=== PATIENT | male | born 1960 | race Caucasian/White ===

== ENCOUNTER 2016-09-04 10:50 | Inpatient (IN) | payer OTHER ==
[~2016-09-04] VITALS: Ht 165.1 cm; Wt 66.0 kg
[~2016-09-04 10:50] MED LIST: AMLO5TAB96 PO; LORTA5 PO; TRIA50 PO
[2016-09-04 10:54] VITALS: BP 180/96; PULSE 74; RESP 20; TEMP 98.5; O2SAT 96
[2016-09-04 12:49] LABS: AUTOMATED NEUTROPHIL # 8.1 TH/MM3 (1.8-7.7); BASOPHIL % 0.4 % (0.0-2.0); EOSINOPHIL % 0.3 % (0.0-4.0); HEMATOCRIT 42.7 % (39.0-51.0); HEMO FLAGS DIFF FINAL; LYMPH % 20.9 % (9.0-44.0); LYMPHOCYTE # 2.4 TH/MM3 (1.0-4.8); MEAN CELL VOLUME 90.5 FL (80.0-100.0); MEAN CORPUSCULAR HEMOGLOBIN 30.8 PG (27.0-34.0); MONO % 7.9 % (0.0-8.0); NEUT % 70.5 % (16.0-70.0); PLATELET COUNT 250 TH/MM3 (150-450); RED BLOOD COUNT 4.71 MIL/MM3 (4.50-5.90); RED CELL DISTRIBUTION WIDTH 12.8 % (11.6-17.2); WHITE BLOOD COUNT 11.5 TH/MM3 (4.0-11.0)
[2016-09-04 13:04] LABS: APTT (PATIENT) 23.4 SEC (24.3-30.1); INTERNATIONAL NORMALIZED RATIO 0.9 RATIO; PROTHROMBIN TIME - PATIENT 9.7 SEC (9.8-11.6)
[2016-09-04 13:13] LABS: ANION GAP 5 MEQ/L (5-15); AST (GOT) 14 U/L (15-37); BICARBONATE 30.7 MEQ/L (21.0-32.0); BLOOD UREA NITROGEN 16 MG/DL (7-18); CHLORIDE 104 MEQ/L (98-107); GLOMERULAR FILTRATION RATE 97 ML/MIN (>89); MAGNESIUM 2.4 MG/DL (1.5-2.5); POTASSIUM 3.2 MEQ/L (3.5-5.1); SODIUM (NA) 140 MEQ/L (136-145)
[2016-09-04 13:24] LABS: ALKALINE PHOSPHATASE 59 U/L (45-117); ALT (GPT) 34 U/L (12-78); TOTAL BILIRUBIN ADULT 0.3 MG/DL (0.2-1.0)
--- NOTE | 2016-09-04 13:38 | PD ---
HPI Chief Complaint: Neuro Symptoms/ Deficits Time Seen by Provider: 13:30 Travel History International Travel<30 days: No Contact w/Intl Traveler<30days: No Traveled to known affect area: No History of Present Illness HPI 55-year-old male that presents to the ED for evaluation of neurological deficits. per patient he was seen by his doctor today Dr. Szymanski secondary to severe paralysis of his lower legs and his upper arms. Per patient about 2 months ago he had a fall and injury to his back. Patient has been following with his doctor and had MRIs of his back that shows some irritated joint disease as well as some herniated disc in the cervical and lumbar spine. Patient has been following with him and he was supposed to have a follow-up with pain management tomorrow as well as with a neurologist again nerve studies as he cannot really figure out why he was having the symptoms that he is describing. Per patient he has inability to move especially the right hand and also the left arm. Per patient he has difficulty even lifting the right legs. Also affecting the left leg. Per patient some of these changes have been also when he sits. Per patient especially on the lower legs when he sits sometimes he gets what he describes as spasms of his left leg where his leg points up. No history of neurological deficit before. No chest pain. No shortness of breath. No urinary or bowel movement issues. Per patient he was sent here by his doctor to get evaluated for this changes as per patient today the symptoms worsen when he cannot walk anymore. He denies any pain other than back pain. He states that he sensation is intact although he does feel some numbness especially on the right arm. No surgeries to the back. No fevers chills or sweats. PFSH Past Surgical History Oral Surgery: Yes (T& A) Social History Tobacco Use: No Substance Use: No Allergies-Medications (Allergen,Severity, Reaction): Coded Allergies: Dilantin (Unverified Allergy, Unknown, Rash, 08/07/10) Reported Meds & Prescriptions Reported Meds & Active Scripts Active Reported [place] 5/325 (Hydrocodone-Acetaminophen) 325 Mg/5 Mg Tab 1-2 Tab PO Q6HPRN Norvasc (Amlodipine Besylate) 5 Mg Tab 5 Mg PO DAILY Dyrenium (Triamterene) 50 Mg Cap 37.5 PO DAILY UNKNOWN DOSE Review of Systems Except as stated in HPI: all other systems reviewed are Neg Physical Exam Narrative GENERAL: SKIN: Warm and dry. HEAD: Atraumatic. Normocephalic. EYES: Pupils equal and round 4 mm reactive to light and accommodation. No scleral icterus. No injection or drainage. ENT: No nasal bleeding or discharge. Mucous membranes pink and moist. Tongue is midline. No uvula deviation. NECK: Trachea midline. No JVD. CARDIOVASCULAR: Regular rate and rhythm. No murmurs, S3, S4. RESPIRATORY: No accessory muscle use. Clear to auscultation. Breath sounds equal bilaterally. GASTROINTESTINAL: Abdomen soft, non-tender, nondistended. Hepatic and splenic margins not palpable. MUSCULOSKELETAL: Extremities without clubbing, cyanosis, or edema. No obvious deformities. Patient has deficit on the right hand. Patient keeps the hand flexing cannot extended on by himself. Patient also cannot extend the right elbow without assistance. Sensation appears to be intact. Vascular intact. 2 + pulses bilaterally. No lumbar, thoracic, cervical spine tenderness to palpation noted. No deformity noted in this area. Patient has 3 out of 5 strength in the right lower extremity compared to the left which on my exam appears to be 4/5. Patient able to move TOES of the left leg compared to the right which he cannot move them. No foot drop noted. Sensation intact on the lower extremities. 2+ pulses bilaterally. DTRS are 1+ and minimal. NEUROLOGICAL: Awake and alert. No obvious cranial nerve deficits. Motor grossly within normal limits. Five out of 5 muscle strength in the arms and legs. Normal speech. PSYCHIATRIC: Appropriate mood and affect; insight and judgment normal. Data Data Last Documented VS Vital Signs Date Time Temp Pulse Resp B/P Pulse Ox O2 Delivery O2 Flow Rate FiO2 09/04/16 10:54 98.5 74 20 180/96 96 Room Air Orders Electrocardiogram (09/04/16 11:44) Complete Blood Count With Diff (09/04/16 11:44) Comprehensive Metabolic Panel (09/04/16 11:44) Prothrombin Time / Inr (Pt) (09/04/16 11:44) Act Partial Throm Time (Ptt) (09/04/16 11:44) Magnesium (Mg) (09/04/16 11:44) Thyroid Stimulating Hormone (09/04/16 11:44) Iv Access Insert/Monitor (09/04/16 11:44) Mri Brain W/O Contrast (09/04/16 ) Mri C Spine W/O Contrast (09/04/16 ) Lumbar Puncture (09/04/16 ) Vital Signs (Adult) .On admission (09/04/16 16:52) Notify Radiology (09/04/16 16:52) Csf Cell Count + Differential (09/04/16 16:52) Total Protein, Csf (09/04/16 16:52) Glucose, Csf (09/04/16 16:52) Csf Culture And Gram Stain (09/04/16 16:52) Csf B.Burgdorfer Igg&Igm Lymes (09/04/16 16:52) Csf B.Burgdorferi Dna Lymes (09/04/16 16:52) Vdrl Csf (09/04/16 16:52) Labs Laboratory Tests Test 09/04/16 11:45 White Blood Count 11.5 TH/MM3 Red Blood Count 4.71 MIL/MM3 Hemoglobin 14.5 GM/DL Hematocrit 42.7 % Mean Corpuscular Volume 90.5 FL Mean Corpuscular Hemoglobin 30.8 PG Mean Corpuscular Hemoglobin 34.0 % Concent Red Cell Distribution Width 12.8 % Platelet Count 250 TH/MM3 Mean Platelet Volume 8.5 FL Neutrophils (%) (Auto) 70.5 % Lymphocytes (%) (Auto) 20.9 % Monocytes (%) (Auto) 7.9 % Eosinophils (%) (Auto) 0.3 % Basophils (%) (Auto) 0.4 % Neutrophils # (Auto) 8.1 TH/MM3 Lymphocytes # (Auto) 2.4 TH/MM3 Monocytes # (Auto) 0.9 TH/MM3 Eosinophils # (Auto) 0.0 TH/MM3 Basophils # (Auto) 0.0 TH/MM3 CBC Comment DIFF FINAL Differential Comment Prothrombin Time 9.7 SEC Prothromb Time International 0.9 RATIO Ratio Activated Partial 23.4 SEC Thromboplast Time Sodium Level 140 MEQ/L Potassium Level 3.2 MEQ/L Chloride Level 104 MEQ/L Carbon Dioxide Level 30.7 MEQ/L Anion Gap 5 MEQ/L Blood Urea Nitrogen 16 MG/DL Creatinine 0.82 MG/DL Estimat Glomerular Filtration 97 ML/MIN Rate Random Glucose 76 MG/DL Calcium Level 8.4 MG/DL Magnesium Level 2.4 MG/DL Total Bilirubin 0.3 MG/DL Aspartate Amino Transf 14 U/L (AST/SGOT) Alanine Aminotransferase 34 U/L (ALT/SGPT) Alkaline Phosphatase 59 U/L Total Protein 6.4 GM/DL Albumin 3.3 GM/DL Thyroid Stimulating Hormone 0.787 uIU/ML [address] [place] [address] Medical Decision Making Medical Screen Exam Complete: Yes Emergency Medical Condition: Yes Medical Record Reviewed: Yes Interpretation(s) Last Impressions Brain MRI 09/04/16 0000 Signed Impressions: Service Date/Time: Sunday, September 04, 2016 15:21 - CONCLUSION: 1. Periventricular white matter changes in a nonspecific fashion. 2. There is no retracted diffusion to suggest an acute ischemic event. 3. These white matter changes do extend into the posterior fossa and brainstem. Brodie Gilliam MD FACR MRI of cervical spine showed DJD and some changes but no spinal cord injury CBC & BMP Diagram 09/04/16 11:45 coags WNL Differential Diagnosis Neuropathy versus radiculopathy versus brain injury versus weakness versus acute on chronic versus herniated disc Narrative Course 55-year-old male that presents to the ED for evaluation of extremity paralysis per patient. Patient was properly examined and does appear to have some weakness especially to the right side of the body compared to the left but also on the left. This appears to have worsened per patient for the past couple of days. Patient was seen by his primary care doctor and sent here for evaluation. [facility] had MRIs done about 2 weeks ago. I spoke with the patient' s PCP who tells me that the MRIs did not show any sign of severe illness and I was able to pull of the MRIs which only show mild to moderate herniated disks and no sign of stenosis more noted on the lumbar than on the cervical spine. MRI of the brain was done. Patient denies any new injuries. Patient does have obvious deficit again on the right side. Sensation appears to be intact. Unclear as to the reason patient is having the symptoms. I spoke with my attending Dr. Castellano who agrees with plan. MRI of the head as well as the cervical spine will be done to make sure patient does not have any acute disease. Labs were drawn. My attending Dr. Castellano evaluated the patient with me and recommends speaking with neurologist for possible lumbar puncture and admission. Patient was told this and agrees with plan. I performed lumbar puncture. Dr. Castellano spoke with Dr. Valle who agrees to admission and consult to him. [facility] hospitalist was contacted and Dr Gabriel agrees to admission. Diagnosis Primary Impression: Ascending paralysis Admitting Information Admitting Physician Requests: Admit Luis Carlos Sherwood Sep 04, 2016 13:38
--- NOTE | 2016-09-04 16:07 | PD ---
Data Data Last Documented VS Vital Signs Date Time Temp Pulse Resp B/P Pulse Ox O2 Delivery O2 Flow Rate FiO2 09/04/16 10:54 98.5 74 20 180/96 96 Room Air Orders Complete Blood Count With Diff (09/04/16 11:44) Comprehensive Metabolic Panel (09/04/16 11:44) Prothrombin Time / Inr (Pt) (09/04/16 11:44) Act Partial Throm Time (Ptt) (09/04/16 11:44) Magnesium (Mg) (09/04/16 11:44) Thyroid Stimulating Hormone (09/04/16 11:44) Iv Access Insert/Monitor (09/04/16 11:44) Mri Brain W/O Contrast (09/04/16 ) Mri C Spine W/O Contrast (09/04/16 ) Lumbar Puncture (09/04/16 ) Vital Signs (Adult) .On admission (09/04/16 16:52) Notify Radiology (09/04/16 16:52) Csf Cell Count + Differential (09/04/16 16:52) Total Protein, Csf (09/04/16 16:52) Glucose, Csf (09/04/16 16:52) Csf Culture And Gram Stain (09/04/16 16:52) Csf B.Burgdorfer Igg&Igm Lymes (09/04/16 16:52) Csf B.Burgdorferi Dna Lymes (09/04/16 16:52) Vdrl Csf (09/04/16 16:52) Admit Order (Ed Use Only) (09/04/16 17:13) Consult Neurology (09/04/16 ) Labs Laboratory Tests Test 09/04/16 11:45 White Blood Count 11.5 TH/MM3 Red Blood Count 4.71 MIL/MM3 Hemoglobin 14.5 GM/DL Hematocrit 42.7 % Mean Corpuscular Volume 90.5 FL Mean Corpuscular Hemoglobin 30.8 PG Mean Corpuscular Hemoglobin 34.0 % Concent Red Cell Distribution Width 12.8 % Platelet Count 250 TH/MM3 Mean Platelet Volume 8.5 FL Neutrophils (%) (Auto) 70.5 % Lymphocytes (%) (Auto) 20.9 % Monocytes (%) (Auto) 7.9 % Eosinophils (%) (Auto) 0.3 % Basophils (%) (Auto) 0.4 % Neutrophils # (Auto) 8.1 TH/MM3 Lymphocytes # (Auto) 2.4 TH/MM3 Monocytes # (Auto) 0.9 TH/MM3 Eosinophils # (Auto) 0.0 TH/MM3 Basophils # (Auto) 0.0 TH/MM3 CBC Comment DIFF FINAL Differential Comment Prothrombin Time 9.7 SEC Prothromb Time International 0.9 RATIO Ratio Activated Partial 23.4 SEC Thromboplast Time Sodium Level 140 MEQ/L Potassium Level 3.2 MEQ/L Chloride Level 104 MEQ/L Carbon Dioxide Level 30.7 MEQ/L Anion Gap 5 MEQ/L Blood Urea Nitrogen 16 MG/DL Creatinine 0.82 MG/DL Estimat Glomerular Filtration 97 ML/MIN Rate Random Glucose 76 MG/DL Calcium Level 8.4 MG/DL Magnesium Level 2.4 MG/DL Total Bilirubin 0.3 MG/DL Aspartate Amino Transf 14 U/L (AST/SGOT) Alanine Aminotransferase 34 U/L (ALT/SGPT) Alkaline Phosphatase 59 U/L Total Protein 6.4 GM/DL Albumin 3.3 GM/DL Thyroid Stimulating Hormone 0.787 uIU/ML 3rd Gen MDM Supervised Visit with KALEY: Yes Narrative Course I, Dr. Castellano], have reviewed the advance practice practitioner's documentation and am in agreement, met with the patient face to face, made the diagnosis, and the medical decision making was done by me. *My assessment and Findings: Patient is abnormal neurologic exam including bilateral wristdrop, very difficult to elicit DTRs with him. He does seem to be focused on his low back pain but I don't think that any low back lesion would explain his upper extremity symptoms. Patient has had an MRI of his complete spine, will add an MRI of his head and a repeat MRI of his C-spine at this point. The patient has been following with a neurologist up rule and it sounds like they're planning for an EMG however the patient with his acute neurologic findings may benefit from admission to the hospital and this was discussed with patient as he agreeable for admission. The differential diagnosis does include MS unlikely Annel Gehrig's disease intracranial lesions, electro-light abnormality, Guillain- Deleon variant. Diagnosis Primary Impression: Ascending paralysis Admitting Information Admitting Physician Requests: Admit Condition: Stable Denis Castellnao MD Sep 04, 2016 16:07
--- NOTE | 2016-09-04 16:17 | RADRPT ---
EXAM DATE/TIME: 09/04/2016 15:21 [facility] COMPARISON: No previous studies available for comparison. INDICATIONS : Bilateral upper extremity weakness. MEDICAL HISTORY : Hypertension. SURGICAL HISTORY : Inguinal hernia repair. ENCOUNTER: Initial ACUITY: 2 day PAIN SCORE: 0/10 LOCATION: Head TECHNIQUE: Multiplanar, multisequence MRI of the brain was performed without contrast. FINDINGS: Periventricular white matter changes are noted in a nonspecific fashion. There is no re stricted diffusion. There are no extra-axial fluid collections appreciated. Midline structures are intact. Posterior fossa is unremarkable. There is no parenchymal hemorrhage identified. CONCLUSION: 1. Periventricular white matter changes in a nonspecific fashion. 2. There is no retracted diffusion to suggest an acute ischemic event. 3. These white matter changes do extend into the posterior fossa and brainstem. Brodie Gilliam MD FACR on September 04, 2016 at 16:10 Board Certified Radiologist. This report was verified electronically.
--- NOTE | 2016-09-04 16:27 | RADRPT ---
EXAM DATE/TIME: 09/04/2016 15:21 [facility] COMPARISON: No previous studies available for comparison. INDICATIONS : Upper extremity weakness after fall two months ago with inability to move upper ext remities since last night. MEDICAL HISTORY : Hypertension SURGICAL HISTORY : Inguinal hernia repair. ENCOUNTER: Initial ACUITY: 2 day PAIN SCORE: 3/10 LOCATION: Neck TECHNIQUE: Multiplanar, multisequence MRI examination of the cervical spine was performed. FINDINGS: By MRI the signal intensity in the cervical cord is normal. Cerebellar tonsils are in normal anatomic position. C2-C3: The thecal sac has a normal configuration. There is no evidence of disc herniation or spinal canal stenosis. The neural foramina are patent bilaterally. C3-C4: Very minimal uncinate ridging is present without significant spinal stenosis. Neural foramina are adequate. C4-C5: Very mild uncinate ridging is present with moderate right-sided neural foraminal encroachment . C5-C6: Mild uncinate ridging is present with moderate right-sided neural foraminal encroachment. C6-C7: Mild uncinate ridging is present with minimal bilateral neural foraminal encroachment worse o n the right than the left. C7-T1: The thecal sac has a normal configuration. There is no evidence of disc herniation or spinal canal stenosis. The neural foramina are patent bilaterally. CONCLUSION: Degenerative changes in the cervical spine. The majority of which is neural foramina l encroachment. Degenerative changes are more significant on the right than the left. Correlation is suggested. Brodie Gilliam MD FACR on September 04, 2016 at 16:12 Board Certified Radiologist. This report was verified electronically.
[2016-09-04] MEDS ORDERED: ONDANSETRON HCL 4 MG/2 ML VIAL IVP PRN (17:45)
[2016-09-04] MEDS ORDERED: BISACODYL 10 MG SUPP RECTAL PRN (17:45)
[2016-09-04] MEDS ORDERED: LACTULOSE SYRUP 20 GM/30 ML CUP PO PRN (17:45)
[2016-09-04] MEDS ORDERED: SENNOSIDES 8.6 MG TAB PO PRN (17:45)
[2016-09-04] MEDS ORDERED: MAGNESIUM HYDROXIDE SUSP 30 ML CUP PO PRN (17:45)
[2016-09-04] MEDS ORDERED: NALOXONE HCL 0.4 MG/ML AMP IV PRN (17:45)
[2016-09-04] MEDS ORDERED: SODIUM CHLORIDE 0.9% FLUSH 10 ML FLUSH IV FLUSH PRN (17:45)
--- NOTE | 2016-09-04 17:54 | PD.RAD ---
Post Procedure Progress Note Pre Procedure Diagnosis: (1) Ascending paralysis Post Procedure Diagnosis: (1) Ascending paralysis Procedure Date: Sep 04, 2016 Supervising Radiologist: Shady Gilliam Anesthesia: Local Plan of Activity Patient to Unit: Other Patient Condition: Fair Additional Comments: LP completed single puncture at L4 18cc of clear csf removed opening pressure 18-20 See PACS Report for procedural detail/treatment Shady Gilliam MD Sep 04, 2016 17:54
--- NOTE | 2016-09-04 17:59 | RADRPT ---
EXAM DATE/TIME: 09/04/2016 17:28 [facility] COMPARISON: No previous studies available for comparison. INDICATIONS : Patient presents with bilateral upper and lower extremity paralysis in need of lumbar puncture. MEDICAL HISTORY : HTN, Herniated disc cervical and lumbar SURGICAL HISTORY : Right wrist and 5th digit surgery ENCOUNTER: Initial ACUITY: 1 day PAIN SCORE: 0/10 LUMBAR PUNCTURE TIME: 1730 hours FLUORO TIME: 0.6 minutes IMAGE SERIES: 0 ACCESS LEVEL: L3-4 OPENING PRESSURE: 18-20cm of water CLOSING PRESSURE: Not requested. FLUID: 18 cc of clear CSF was collected and sent to the laboratory for analysis. PROCEDURE : 1. Fluoroscopic guided lumbar puncture. 2. Recording of opening pressure. The risks, benefits and alternatives to the procedure were explained and verbal and written consent w as obtained. The site was prepped in sterile fashion. Full sterile technique was used, including ca p, mask, sterile gloves and gown and a large sterile sheet. Hand hygiene and 2% chlorhexidine and/or betadine/alcohol prep was utilized per protocol for cutaneous antisepsis. The skin and subcutaneous tissues were infiltrated with local anesthetic solution. With fluoroscopic guidance the lumbar thecal sac was punctured at the above level described above and the opening pressure was recorded. The above described fluid was removed without difficulty. The patient tolerated the procedure well and there were no complications. CONCLUSION: Uncomplicated fluoroscopically guided lumbar puncture with pressures as above. Shady Gilliam MD on September 04, 2016 at 17:56 Board Certified Radiologist. This report was verified electronically.
[2016-09-04] MEDS ORDERED: POTASSIUM CHLORIDE 25 MEQ EFFERVESCENT TAB PO ONE (18:15)
--- NOTE | 2016-09-04 18:25 | HHI.PR ---
Objective Objective Results - Vital Signs Date Time Temp Pulse Resp B/P Pulse Ox O2 Delivery O2 Flow Rate FiO2 09/04/16 10:54 98.5 74 20 180/96 96 Room Air Result Diagram: 09/04/16 1145 09/04/16 1145 Other Results Laboratory Tests Test 09/04/16 09/04/16 11:45 17:25 White Blood Count 11.5 Red Blood Count 4.71 Hemoglobin 14.5 Hematocrit 42.7 Mean Corpuscular Volume 90.5 Mean Corpuscular Hemoglobin 30.8 Mean Corpuscular Hemoglobin 34.0 Concent Red Cell Distribution Width 12.8 Platelet Count 250 Mean Platelet Volume 8.5 Neutrophils (%) (Auto) 70.5 Lymphocytes (%) (Auto) 20.9 Monocytes (%) (Auto) 7.9 Eosinophils (%) (Auto) 0.3 Basophils (%) (Auto) 0.4 Neutrophils # (Auto) 8.1 Lymphocytes # (Auto) 2.4 Monocytes # (Auto) 0.9 Eosinophils # (Auto) 0.0 Basophils # (Auto) 0.0 CBC Comment DIFF FINAL Differential Comment Prothrombin Time 9.7 Prothromb Time International 0.9 Ratio Activated Partial 23.4 Thromboplast Time Sodium Level 140 Potassium Level 3.2 Chloride Level 104 Carbon Dioxide Level 30.7 Anion Gap 5 Blood Urea Nitrogen 16 Creatinine 0.82 Estimat Glomerular Filtration 97 Rate Random Glucose 76 Calcium Level 8.4 Magnesium Level 2.4 Total Bilirubin 0.3 Aspartate Amino Transf 14 (AST/SGOT) Alanine Aminotransferase 34 (ALT/SGPT) Alkaline Phosphatase 59 Total Protein 6.4 Albumin 3.3 Thyroid Stimulating Hormone 0.787 3rd Gen CSF Glucose 69 CSF Total Protein 68.1 Date/Time Procedure Status Source Growth 09/04/16 17:25 Gram Stain Received Cerebral Spinal Fluid Lumbar Puncture Pending 09/04/16 17:25 CSF Culture Received Cerebral Spinal Fluid Lumbar Puncture Pending Physical Exam Physical Exam PT is seen & examined d/w PT & his just had LP, results [p] Neurology consult d/w Awilda see Orders will f/u Parag Lewis MD Sep 04, 2016 18:25
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
[2016-09-04] MEDS ORDERED: cloNIDine HCL 0.1 MG TAB PO PRN (18:45)
[2016-09-04] MEDS ORDERED: HYDR12.57 PO (18:48)
[2016-09-04] MEDS ORDERED: AMLO5TAB2 PO (18:48)
[2016-09-04] MEDS ORDERED: IBUP800T23 PO (18:48)
[2016-09-04] MEDS ORDERED: TRAM50TA PO (18:48)
[2016-09-04] MEDS ORDERED: GABA300C5 PO (18:48)
[2016-09-04] MEDS: SODIUM CHLOR 0.9% 1000 ML INJ 1,000 ML IV SCH (18:59)
[2016-09-04 19:12] VITALS: BP 135/86; PULSE 59; RESP 18; O2SAT 94
[2016-09-04 19:14] LABS: GROSS BLOOD TUBE #1 0 (0); GROSS BLOOD TUBE #2 0 (0); GROSS BLOOD TUBE #3 0 (0); GROSS BLOOD TUBE #4 0 (0); SUPERNATE COLOR TUBE #1 CLEAR (CLEAR); SUPERNATE COLOR TUBE #2 CLEAR (CLEAR); SUPERNATE COLOR TUBE #3 CLEAR (CLEAR); SUPERNATE COLOR TUBE #4 CLEAR (CLEAR); VOLUME TUBE # 2 3.3 ML; VOLUME TUBE # 3 3.8 ML; VOLUME TUBE # 4 6.5 ML
[2016-09-04 19:15] LABS: CSF LYMPHOCYTES 67 %; CSF MONOCYTES 33 %; CSF NEUTROPHILS 0 %; WBC TUBE #4 2 /MM3 (0-10)
[2016-09-04 20:30] VITALS: BP 142/74; PULSE 62; RESP 18; TEMP 97.2; O2SAT 96
[2016-09-04] MEDS: SODIUM CHLORIDE 0.9% FLUSH 10 ML FLUSH IV FLUSH SCH (20:38)
[2016-09-04] MEDS: GABAPENTIN 300 MG CAP PO SCH (20:38)
[2016-09-04] MEDS: DOCUSATE SODIUM 50 MG/SENNA 8.6 MG TAB PO SCH (20:38)
[2016-09-04 21:10] VITALS: PULSE 66
[2016-09-04 23:41] VITALS: BP 123/64; PULSE 67; RESP 18; TEMP 97.3; O2SAT 96
[2016-09-05 03:42] VITALS: BP 159/85; PULSE 68; RESP 18; TEMP 97; O2SAT 96
[2016-09-05] MEDS: SODIUM CHLOR 0.9% 1000 ML INJ 1,000 ML IV SCH ×3 (03:42→19:50)
[2016-09-05 07:09] VITALS: BP 129/87; PULSE 61; RESP 18; TEMP 97.5; O2SAT 94
[2016-09-05 08:00] LABS: AUTOMATED NEUTROPHIL # 3.9 TH/MM3 (1.8-7.7); BASOPHIL % 0.3 % (0.0-2.0); EOSINOPHIL # 0.1 TH/MM3 (0-0.4); EOSINOPHIL % 0.7 % (0.0-4.0); HEMATOCRIT 40.2 % (39.0-51.0); HEMO FLAGS DIFF FINAL; LYMPH % 42.7 % (9.0-44.0); LYMPHOCYTE # 3.6 TH/MM3 (1.0-4.8); MEAN CELL VOLUME 90.8 FL (80.0-100.0); MEAN CORPUSCULAR HEMOGLOBIN 31.4 PG (27.0-34.0); MEAN CORPUSCULAR HGB CONC 34.6 % (32.0-36.0); MONO % 9.6 % (0.0-8.0); NEUT % 46.7 % (16.0-70.0); PLATELET COUNT 230 TH/MM3 (150-450); RED BLOOD COUNT 4.42 MIL/MM3 (4.50-5.90); RED CELL DISTRIBUTION WIDTH 13.3 % (11.6-17.2); WHITE BLOOD COUNT 8.4 TH/MM3 (4.0-11.0)
[2016-09-05 08:22] LABS: BICARBONATE 29.9 MEQ/L (21.0-32.0); POTASSIUM 3.5 MEQ/L (3.5-5.1)
[2016-09-05] MEDS: amLODIPine BESYLATE 5 MG TAB PO SCH (09:13)
[2016-09-05] MEDS: SODIUM CHLORIDE 0.9% FLUSH 10 ML FLUSH IV FLUSH SCH ×2 (09:13→19:58)
[2016-09-05] MEDS: HYDROCHLOROTHIAZIDE 12.5 MG CAP PO SCH (09:13)
[2016-09-05] MEDS: DOCUSATE SODIUM 50 MG/SENNA 8.6 MG TAB PO SCH ×2 (09:13→19:58)
--- NOTE | 2016-09-05 11:01 | HHI.PR ---
Subjective Remarks pt. seen laying in bed, was able to roll on right side, was able to flex right knee. keeping fists clenched, states " I have to think about it hard to move them" able to lift both arms no cp no sob no fever intact sensation Objective Objective Results - Vital Signs Date Time Temp Pulse Resp B/P Pulse Ox O2 Delivery O2 Flow Rate FiO2 09/05/16 07:09 97.5 61 18 129/87 94 09/05/16 03:42 97.0 68 18 159/85 96 09/04/16 23:41 97.3 67 18 123/64 96 09/04/16 21:10 66 09/04/16 20:30 97.2 62 18 142/74 96 09/04/16 19:37 Room Air 09/04/16 19:12 59 18 135/86 94 Room Air I/O 09/04/16 09/04/16 09/04/16 09/05/16 09/05/16 09/05/16 07:00 15:00 23:00 07:00 15:00 23:00 Intake Total 380 ml 930 ml Output Total 400 ml Balance -20 ml 930 ml Intake Oral 240 ml 240 ml IV Total 140 ml 690 ml Output Urine Total 400 ml # Voids 0 # Bowel Movements 0 0 1 Result Diagram: 09/05/16 0642 09/05/16 0642 Imaging Last Impressions Lumbar Puncture Fluoroscopy 09/04/16 0000 Signed Impressions: Service Date/Time: Sunday, September 04, 2016 17:28 - CONCLUSION: Uncomplicated fluoroscopically guided lumbar puncture with pressures as above. Shady Gilliam MD Brain MRI 09/04/16 0000 Signed Impressions: Service Date/Time: Sunday, September 04, 2016 15:21 - CONCLUSION: 1. Periventricular white matter changes in a nonspecific fashion. 2. There is no retracted diffusion to suggest an acute ischemic event. 3. These white matter changes do extend into the posterior fossa and brainstem. Brodie Gilliam MD FACR Other Results Laboratory Tests Test 09/04/16 09/04/16 09/05/16 11:45 17:25 06:42 White Blood Count 11.5 8.4 Red Blood Count 4.71 4.42 Hemoglobin 14.5 13.9 Hematocrit 42.7 40.2 Mean Corpuscular Volume 90.5 90.8 Mean Corpuscular Hemoglobin 30.8 31.4 Mean Corpuscular Hemoglobin 34.0 34.6 Concent Red Cell Distribution Width 12.8 13.3 Platelet Count 250 230 Mean Platelet Volume 8.5 8.4 Neutrophils (%) (Auto) 70.5 46.7 Lymphocytes (%) (Auto) 20.9 42.7 Monocytes (%) (Auto) 7.9 9.6 Eosinophils (%) (Auto) 0.3 0.7 Basophils (%) (Auto) 0.4 0.3 Neutrophils # (Auto) 8.1 3.9 Lymphocytes # (Auto) 2.4 3.6 Monocytes # (Auto) 0.9 0.8 Eosinophils # (Auto) 0.0 0.1 Basophils # (Auto) 0.0 0.0 CBC Comment DIFF FINAL DIFF FINAL Differential Comment Prothrombin Time 9.7 Prothromb Time International 0.9 Ratio Activated Partial 23.4 Thromboplast Time Sodium Level 140 143 Potassium Level 3.2 3.5 Chloride Level 104 108 Carbon Dioxide Level 30.7 29.9 Anion Gap 5 5 Blood Urea Nitrogen 16 13 Creatinine 0.82 0.93 Estimat Glomerular Filtration 97 84 Rate Random Glucose 76 81 Calcium Level 8.4 7.9 Magnesium Level 2.4 Total Bilirubin 0.3 Aspartate Amino Transf 14 (AST/SGOT) Alanine Aminotransferase 34 (ALT/SGPT) Alkaline Phosphatase 59 Total Protein 6.4 Albumin 3.3 Thyroid Stimulating Hormone 0.787 3rd Gen CSF Volume (Tube 1) 4.0 CSF Supernatant Color (tube 1) CLEAR CSF Gross Blood (Tube 1) 0 CSF Volume (Tube 2) 3.3 CSF Supernatant Color (tube 2) CLEAR CSF Gross Blood (Tube 2) 0 CSF Volume (Tube 3) 3.8 CSF Supernatant Color (tube 3) CLEAR CSF Gross Blood (Tube 3) 0 CSF Volume (Tube 4) 6.5 CSF Supernatant Color (tube 4) CLEAR CSF Gross Blood (Tube 4) 0 CSF WBC (Tube 4) 2 CSF RBC (Tube 4) 9 CSF Neutrophils 0 CSF Lymphocytes 67 CSF Monocytes 33 CSF Glucose 69 CSF Total Protein 68.1 Date/Time Procedure Status Source Growth 09/04/16 17:25 Gram Stain - Final Resulted Cerebral Spinal Fluid Lumbar Puncture 09/04/16 17:25 CSF Culture - Preliminary Resulted Cerebral Spinal Fluid Lumbar Puncture NO GROWTH IN 24 HOURS. ROS General: Other (12 point ROS completed, negative except as noted above, unreliable. ) HEENT: No: Sore Throat, Dysphagia Cardiac: No: Chest Pain, Edema, Palpitations Pulmonary: No: Cough, SOB, Wheezing GI: No: Abdominal Pain, BM, Diarrhea, N/V /MEDICAL OBSERVER: No: Dysuria, Urgency Neuro/MS: Other (low back pain ), No: Lightheaded, Confusion Psych: No: Anxiety, Depression Skin: No: Itching, Rash Physical Exam Physical Exam GENERAL: This is a well-nourished, well-developed patient, in no apparent distress. SKIN: No rashes, ecchymoses or lesions. Cool and dry. HEAD: Atraumatic. Normocephalic. No temporal or scalp tenderness. EYES: Pupils equal round and reactive. Extraocular motions intact. No scleral icterus. No injection or drainage. ENT: Nose without bleeding, purulent drainage or septal hematoma. Throat without erythema, tonsillar hypertrophy or exudate. Uvula midline. Airway patent. NECK: Trachea midline. No JVD or lymphadenopathy. Supple, nontender, no meningeal signs. CARDIOVASCULAR: Regular rate and rhythm without murmurs, gallops, or rubs. RESPIRATORY: Clear to auscultation. Breath sounds equal bilaterally. No wheezes , rales, or rhonchi. GASTROINTESTINAL: Abdomen soft, non-tender, nondistended. No hepato-splenomegaly , or palpable masses. No guarding. MUSCULOSKELETAL: Extremities without clubbing, cyanosis, or edema. No joint tenderness, effusion, or edema noted. No calf tenderness. Negative Homans sign bilaterally. NEUROLOGICAL: Awake, alert oriented 3. Patient is noted with areflexia to patella. Unable to elicit plantar reflex bilaterally. Unable to lift right leg off the bed. Left lower extremity strength is 5 out of 5. Bilateral hand movie machine operator are 2-3 out of 5. Able to lift both arms. Proximal weakness is noted 3 out of 5. He has intact sensation to upper and lower extremities. Urinary Catheter: No Vascular Central Line Catheter: No A/P Diagnosis: (1) Fall from ladder (2) Constipation (3) HTN (hypertension) (4) Ascending paralysis Assessment and Plan 55-year-old male who fell off a ladder in June of this year and has been having difficulty with low back pain and ambulation. He has been dragging right leg. Complaining of intermittent paralysis of both arms. -Continue with neuro checks Neurology has been consulted for evaluation, input appreciation. Work up in progress Follow results of lumbar puncture, in progress Further workup per neurology recommendations -neuro work up in progress, C spine, thoracic and lumbar spine MRI with contrast ordered -Occupational and Physical therapy for evaluation-pending -not much change since yesterday, unreliable neuro exam. Hypertension, initially uncontrolled, now improved continue home medications continue clonidine 0.1 mg by mouth every 6 hrs when necessary for systolic greater than 160 and diastolic greater than 90 Constipation bowel regimen SCDs for DVT prophylaxis continue to f/u work up results, no etiology for patient's symptoms D/W pt and D/W RN D/W Dr. Lewis This patient was seen by myself and Dr. Lewis, this note is written on his behalf Problem Qualifiers (1) Fall from ladder: Qualified Code: W11.XXXS - Fall from ladder, sequela (2) Constipation: Qualified Code: K59.00 - Constipation, unspecified constipation type (3) HTN (hypertension): Qualified Code: I10 - Essential hypertension Awilda Guerrero Sep 05, 2016 11:01
[2016-09-05 11:31] VITALS: BP 129/75; PULSE 70; RESP 18; TEMP 97.8; O2SAT 94
[2016-09-05] MEDS ORDERED: GADODIAMIDE PF 287 MG/ML 5 ML VIAL (for RAD MRI) IV ONE (13:06)
--- NOTE | 2016-09-05 13:31 | MB ---
cc: BRENDA XIONG DATE OF CONSULTATION 09/05/2016 HISTORY A 55-year-old right-handed man with a history of hypertension. Otherwise he has been totally healthy. He fell off a ladder at home in June and at that time he said he had some weakness in the right foot and that seems to have gotten worse where he cannot move his right leg and then about three weeks later he said he could became weak in his hands. He saw a neurologist about a week or two ago, wanted to do EMG and MCV the first week of September. Evidently he had a workup outpatient and some MRIs. He denies any depression. Bowel and bladder have been working fine. He has been walking, however, at home, just dragging his right leg. SOCIAL HISTORY Nonsmoker or drinker. No drugs. Lives with his . He is in the [email or web address], works as an electrical software engineer, works regularly. FAMILY HISTORY Negative for cancer, seizure or stroke. REVIEW OF SYSTEMS He denies any diabetes, hypercholesterolemia, PA, CABG, cardiac arrhythmia, renal, hepatic or pulmonary disease, thyroid disease, lupus, ulcer, cancer, seizure or stroke. He had a little bit of neck pain. MEDICATIONS 1. Amlodipine. 2. Hydrochlorothiazide. 3. Neurontin 300 at bedtime. PHYSICAL EXAMINATION VITAL SIGNS: On exam, afebrile, 61, 18, 129/87. NECK: There are no carotid bruits. HEART: Regular rhythm. I do not detect a murmur. NEUROLOGIC: He has normal bulk and tone throughout. Pupils are equal. Visual barajas are full. Extraocular movements intact without nystagmus. Face is symmetric with normal sensation. Tongue was midline. He holds his arms in against his body and initially beginning cancers body initially when I asked him to hold his arms up, he said that he could not but then when I put his arms in position, he has normal strength in bilateral deltoid, triceps and biceps. His wrist extensors appeared to have near-normal strength. Finger extensors initially were 4-/5 but then later he said he could not wiggle his fingers at all. I can hold his fingers up and extend the position; he can hold on them there but then says he cannot make a fist or move them at all in either hand. The left lower extremity strength is normal throughout. The right lower extremity is 0/5 throughout. DTRs are 2+ and symmetric in the upper and lower extremities bilaterally. The toes are downgoing bilaterally. There is no ankle clonus. Tone was normal throughout. Pinprick he cannot feel on the right leg right up to about 5 cm below the inguinal region but is normal on his penis. On the left leg it is vaguely diminished but appears to be normal or near-normal all the way down, although it is hard to say, below the knee it seems to be patchy. He had no pin level on his abdomen nor on his anterior or posterior chest or low back. Pinprick was diminished up to the shoulders bilaterally and then up to almost his face on the left and his neck on the right. Gait - He can walk and stand but shuffles his right leg. He could stand on his toes on the left but he would not on the right but he could get up out of bed with assist and was able to bear his weight. LABS He had an LP done, showed a protein of 68. Normal less than 45. Glucose was normal. 2 white cells, 9 red cells. Basic metabolic profile was normal as were LFTs, TSH. Albumin is 3.3. CBC is unremarkable. Coags are normal. IMAGING STUDIES He had an MRI of his brain that was read as some white matter changes. MRI of his cervical spine - some DJD. On review of the films there is no acute infarct. MRI of the is essentially normal, minimal white matter changes. No hemorrhages noted. I was not impressed that he had major posterior fossa or brain stem white matter changes. Review of the MRI of the cervical spine - the cord looks fine. IMPRESSION I have to say that his exam looks very unusual, so much so that I thought he might be malingering. There is a slight increase of protein in his CSF. I suppose he could have an unusual case of Guillain-Spotswood, however, his reflexes are totally intact. I could not find a definite anatomical location for his right lower extremity weakness and with the amount of weakness he has in the right leg in bed, there is no way that he could bear weight on it like he does when he walks. Also the fact that he cannot move his fingers would indicate some involvement in his forearms but I think it is unlikely that we are going to find much wrong. I suppose it could consider some plasma exchange in case he had an atypical Guillain-Spotswood type problem. He certainly needs an EMG and MCV which we can go ahead and order here. I am going to have Rehab see him and we will check some additional blood work, check an MRI of his cervical spine as really everything above the neck is working fine. We will do it with contrast, however, and an MRI of his thoracic and lumbar spine. I will be following with you in the hospital. MD EDMUND Hutson/ZENON /10:51 AM /1:11 PM
--- NOTE | 2016-09-05 14:12 | RADRPT ---
EXAM DATE/TIME: 09/05/2016 12:21 [facility] COMPARISON: No previous studies available for comparison. INDICATIONS : Myelopathy. Fall two months ago with increasing weakness. MEDICAL HISTORY : Hypertension. SURGICAL HISTORY : Hernia repair and hand surgery. ENCOUNTER: Subsequent ACUITY: 2 months PAIN SCORE: 0/10 LOCATION: Back. TECHNIQUE: Multiplanar multisequence MRI of the lumbar spine was performed without contrast. FINDINGS: The most caudal appearing lumbar vertebra is numbered as L5. VERTEBRAE: Homogeneous signal. Normal alignment. CONUS: Normal level and configuration. T12-L1: The thecal sac has a normal diameter. No evidence of disc bulge or protrusion. The neural foramina are patent bilaterally. L1-L2: The thecal sac has a normal diameter. No evidence of disc bulge or protrusion. The neural foramina are patent bilaterally. L2-L3: The thecal sac has a normal diameter. No evidence of disc bulge or protrusion. The neural foramina are patent bilaterally. L3-L4: The thecal sac has a normal diameter. No evidence of disc bulge or protrusion. The neural foramina are patent bilaterally. L4-L5: Mild degenerative disc disease with mild central annular bulging. There is no significant epidural ma ss effect or significant disc herniation. L5-S1: The thecal sac has a normal diameter. No evidence of disc bulge or protrusion. The neural foramina are patent bilaterally. CONCLUSION: 1. Mild degenerative disc disease with posterior annular bulging at L4-5. 2. No evidence of significant disc herniation. 3. No evidence of acute bony abnormality, spinal stenosis or foraminal encroachment. Joey Simeon MD on September 05, 2016 at 14:08 Board Certified Radiologist. This report was verified electronically.
--- NOTE | 2016-09-05 14:16 | RADRPT ---
EXAM DATE/TIME: 09/05/2016 12:21 [facility] COMPARISON: No previous studies available for comparison. INDICATIONS : Myelopathy. Fall two months ago with increasing extremity weakness. CONTRAST: 13 cc Omniscan (gadodiamide) IV MEDICAL HISTORY : Hypertension. SURGICAL HISTORY : Hernia repair and right hand surgery. ENCOUNTER: Subsequent ACUITY: 2 months PAIN SCORE: 0/10 LOCATION: Back. TECHNIQUE: Multiplanar, multisequence MRI examination of the cervical spine was performed. FINDINGS: VERTEBRAE: Normal vertebral body height. Homogeneous marrow signal. ALIGNMENT: No evidence of subluxation. CORD: Normal configuration and signal. POST FOSSA: The cerebellar tonsils are normal in position. POST-CONTRAST: No abnormal areas of enhancement are seen. Mild degenerative changes with disc space narrowing and minimal spondylosis is noted. C2-C3: The thecal sac has a normal configuration. There is no evidence of disc herniation or spina l canal stenosis. The neural foramina are patent bilaterally. C3-C4: The thecal sac has a normal configuration. There is no evidence of disc herniation or spinal canal stenosis. The neural foramina are patent bilaterally. C4-C5: The thecal sac has a normal configuration. There is no evidence of disc herniation or spinal canal stenosis. The neural foramina are patent bilaterally. C5-C6: The thecal sac has a normal configuration. There is no evidence of disc herniation or spinal canal stenosis. The neural foramina are patent bilaterally. C6-C7: The thecal sac has a normal configuration. There is no evidence of disc herniation or spinal canal stenosis. The neural foramina are patent bilaterally. C7-T1: The thecal sac has a normal configuration. There is no evidence of disc herniation or spinal canal stenosis. The neural foramina are patent bilaterally. CONCLUSION: Mild degenerative disease. No evidence of disc herniation, acute bony abnormality, spinal cord abnormality or enhancing lesions. Joey Simeon MD on September 05, 2016 at 14:10 Board Certified Radiologist. This report was verified electronically.
--- NOTE | 2016-09-05 14:19 | RADRPT ---
EXAM DATE/TIME: 09/05/2016 12:21 [facility] COMPARISON: No previous studies available for comparison. INDICATIONS : Myelopathy. Fell two months ago with increasing extremity weakness. CONTRAST: 13 cc Omniscan (gadodiamide) IV MEDICAL HISTORY : Hypertension. SURGICAL HISTORY : Hernia repair and right hand surgery. ENCOUNTER: Subsequent ACUITY: 2 months PAIN SCORE: 0/10 LOCATION: Back. TECHNIQUE: Multiplanar multisequence MRI of the thoracic spine was performed. FINDINGS: VERTEBRA: Normal vertebral body height. Homogeneous marrow signal. ALIGNMENT: Normal. CORD: Normal position and configuration. POST CONTRAST: No abnormal areas of contrast enhancement seen. T1-T2: Normal. T2-T3: The thecal sac has a normal diameter. No evidence of disc bulge or protrusion. T3-T4: The thecal sac has a normal diameter. No evidence of disc bulge or protrusion. T4-T5: The thecal sac has a normal diameter. No evidence of disc bulge or protrusion. T5-T6: The thecal sac has a normal diameter. No evidence of disc bulge or protrusion. T6-T7: The thecal sac has a normal diameter. A small left paracentral disc protrusion with mild epidural eff acement and abutment of the spinal cord is noted. T7-T8: The thecal sac has a normal diameter. No evidence of disc bulge or protrusion. T8-T9: The thecal sac has a normal diameter. No evidence of disc bulge or protrusion. T9-T10: The thecal sac has a normal diameter. No evidence of disc bulge or protrusion. T10-T11: The thecal sac has a normal diameter. No evidence of disc bulge or protrusion. T11-T12: The thecal sac has a normal diameter. No evidence of disc bulge or protrusion. T12-L1: The thecal sac has a normal diameter. No evidence of disc bulge or protrusion. CONCLUSION: Small left paracentral disc protrusion at T6-7. No other significant abnormality. Joey Simeon MD on September 05, 2016 at 14:13 Board Certified Radiologist. This report was verified electronically.
[2016-09-05] MEDS: CYCLOBENZAPRINE HCL 10 MG TAB PO PRN (15:00)
[2016-09-05 15:42] VITALS: BP 131/74; PULSE 69; RESP 18; TEMP 97.7; O2SAT 93
[2016-09-05 19:55] VITALS: PULSE 58
[2016-09-05] MEDS: ACETAMINOPHEN 325 MG TAB PO PRN (19:57)
[2016-09-05] MEDS: GABAPENTIN 300 MG CAP PO SCH (19:58)
[2016-09-05 20:15] VITALS: BP 127/78; PULSE 70; RESP 17; TEMP 96.4; O2SAT 96
[2016-09-05 20:48] LABS: ALT (GPT) 30 U/L (12-78); AST (GOT) 11 U/L (15-37)
[2016-09-05 21:14] LABS: FREE T4 0.94 NG/DL (0.76-1.46)
[2016-09-05 21:46] LABS: CREATINE KINASE 30 U/L (39-308)
[2016-09-05 22:37] LABS: RHEUMATOID FACTOR TRIGGER LESS THAN 10.0 IU/ML (0.0-14.9)
[2016-09-06 00:20] VITALS: BP 113/72; PULSE 58; RESP 17; TEMP 98.4; O2SAT 96
[2016-09-06 01:43] LABS: BLOOD, URINE NEG (NEG); COMMENT (UR) CULT NOT INDICATED; CULTURE IF INDICATED CULT NOT INDICATED; GLUCOSE,URINE NEG (NEG); KETONE, URINE NEG (NEG); MUCUS URINE FEW /lpf (OCC); NITRITE,URINE NEG (NEG); URINE COLOR YELLOW (YELLW/STRAW)
[2016-09-06 04:20] VITALS: BP 140/85; PULSE 60; RESP 17; TEMP 97.2; O2SAT 96
[2016-09-06] MEDS: ACETAMINOPHEN 325 MG TAB PO PRN ×2 (04:45→11:29)
[2016-09-06] MEDS: CYCLOBENZAPRINE HCL 10 MG TAB PO PRN (04:45)
[2016-09-06 08:00] VITALS: BP 133/81; PULSE 61; RESP 20; TEMP 97.5; O2SAT 95
[2016-09-06] MEDS: SODIUM CHLORIDE 0.9% FLUSH 10 ML FLUSH IV FLUSH SCH (09:00)
[2016-09-06] MEDS: SODIUM CHLOR 0.9% 1000 ML INJ 1,000 ML IV SCH (10:30)
[2016-09-06] MEDS: amLODIPine BESYLATE 5 MG TAB PO SCH (10:52)
[2016-09-06] MEDS: DOCUSATE SODIUM 50 MG/SENNA 8.6 MG TAB PO SCH (10:52)
[2016-09-06] MEDS: HYDROCHLOROTHIAZIDE 12.5 MG CAP PO SCH (10:52)
[2016-09-06 11:05] LABS: HSV 1,PCR Negative (Negative)
--- NOTE | 2016-09-06 11:18 | HHI.PR ---
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 asking if we can't do it, can he be transferred to [facility] Objective Objective Results - Vital Signs Date Time Temp Pulse Resp B/P Pulse Ox O2 Delivery O2 Flow Rate FiO2 09/06/16 08:00 97.5 61 20 133/81 95 09/06/16 04:20 97.2 60 17 140/85 96 09/06/16 00:20 98.4 58 17 113/72 96 09/05/16 20:15 96.4 70 17 127/78 96 09/05/16 19:55 58 09/05/16 15:42 97.7 69 18 131/74 93 09/05/16 11:31 97.8 70 18 129/75 94 I/O 09/05/16 09/05/16 09/05/16 09/06/16 09/06/16 09/06/16 07:00 15:00 23:00 07:00 15:00 23:00 Intake Total 930 ml 960 ml 240 ml 240 ml Output Total 1675 ml 600 ml Balance 930 ml -715 ml 240 ml -360 ml Intake Oral 240 ml 960 ml 240 ml 240 ml IV Total 690 ml Output Urine Total 1675 ml 600 ml # Voids 0 3 0 # Bowel Movements 0 2 0 0 Result Diagram: 09/05/16 0642 09/05/16 0642 Imaging Last Impressions Lumbar Puncture Fluoroscopy 09/04/16 0000 Signed Impressions: Service Date/Time: Sunday, September 04, 2016 17:28 - CONCLUSION: Uncomplicated fluoroscopically guided lumbar puncture with pressures as above. Shady Gilliam MD Brain MRI 09/04/16 0000 Signed Impressions: Service Date/Time: Sunday, September 04, 2016 15:21 - CONCLUSION: 1. Periventricular white matter changes in a nonspecific fashion. 2. There is no retracted diffusion to suggest an acute ischemic event. 3. These white matter changes do extend into the posterior fossa and brainstem. Brodie Gilliam MD FACR Other Results Laboratory Tests Test 09/05/16 09/06/16 20:00 01:20 Erythrocyte Sedimentation Rate 4 Aspartate Amino Transf 11 (AST/SGOT) Alanine Aminotransferase 30 (ALT/SGPT) Total Creatine Kinase 30 C-Reactive Protein LESS THAN 0.29 Total Protein 6.0 Vitamin B12 Level 366 Folate 7.8 Free Thyroxine 0.94 Rheumatoid Factor Screen NEGATIVE Rheumatoid Factor Titer Urine Color YELLOW Urine Turbidity HAZY Urine pH 7.0 Urine Specific [place] 1.012 Urine Protein NEG Urine Glucose (UA) NEG Urine Ketones NEG Urine Occult Blood NEG Urine Nitrite NEG Urine Bilirubin NEG Urine Urobilinogen LESS THAN 2.0 Urine Leukocyte Esterase NEG Urine RBC LESS THAN 1 Urine Amorphous Sediment RARE Urine Mucus FEW Microscopic Urinalysis Comment CULT NOT INDICATED Date/Time Procedure Status Source Growth 09/04/16 17:25 Gram Stain - Final Resulted Cerebral Spinal Fluid Lumbar Puncture 09/04/16 17:25 CSF Culture - Preliminary Resulted Cerebral Spinal Fluid Lumbar Puncture NO GROWTH IN 48 HOURS. ROS General: Weakness Neuro/MS: Other (headache ) Physical Exam Physical Exam GENERAL: This is a well-nourished, well-developed patient, in no apparent distress. SKIN: No rashes, ecchymoses or lesions. Cool and dry. HEAD: Atraumatic. Normocephalic. No temporal or scalp tenderness. EYES: Pupils equal round and reactive. Extraocular motions intact. No scleral icterus. No injection or drainage. ENT: Nose without bleeding, purulent drainage or septal hematoma. Throat without erythema, tonsillar hypertrophy or exudate. Uvula midline. Airway patent. NECK: Trachea midline. No JVD or lymphadenopathy. Supple, nontender, no meningeal signs. CARDIOVASCULAR: Regular rate and rhythm without murmurs, gallops, or rubs. RESPIRATORY: Clear to auscultation. Breath sounds equal bilaterally. No wheezes , rales, or rhonchi. GASTROINTESTINAL: Abdomen soft, non-tender, nondistended. No hepato-splenomegaly , or palpable masses. No guarding. MUSCULOSKELETAL: Extremities without clubbing, cyanosis, or edema. No joint tenderness, effusion, or edema noted. No calf tenderness. Negative Homans sign bilaterally. NEUROLOGICAL: Awake, alert oriented 3. Patient is noted with areflexia to patella. Unable to elicit plantar reflex bilaterally. Unable to lift right leg off the bed. Left lower extremity strength is 5 out of 5. Bilateral hand marketing project manager are 2-3 out of 5. Able to lift both arms. Proximal weakness is noted 3 out of 5. He has intact sensation to upper and lower extremities. Urinary Catheter: No Vascular Central Line Catheter: No A/P Diagnosis: (1) Fall from ladder (2) Constipation (3) HTN (hypertension) (4) Ascending paralysis Assessment and Plan 55-year-old male who fell off a ladder in June of this year and has been having difficulty with low back pain and ambulation. He has been dragging right leg. Complaining of intermittent paralysis of both arms. -Continue with neuro checks Neurology has been consulted for evaluation, input appreciation. Work up in progress Follow results of lumbar puncture, in progress -C spine, thoracic and lumbar spine MRI with contrast -results noted -Occupational and Physical therapy working with pt. Recommend OP rehab -Rehab consulted, EMG done, f/u results -continue to follow results, unclear as to cause for symptoms. Hypertension, initially uncontrolled, now improved continue home medications continue clonidine 0.1 mg by mouth every 6 hrs when necessary for systolic greater than 160 and diastolic greater than 90 Constipation bowel regimen Headache -Tylenol PRN SCDs for DVT prophylaxis continue to f/u work up results, no etiology for patient's symptoms D/W pt and D/W RN D/W Dr. Lewis This patient was seen by myself and Dr. Lewis, this note is written on his behalf Problem Qualifiers (1) Fall from ladder: Qualified Code: W11.XXXS - Fall from ladder, sequela (2) Constipation: Qualified Code: K59.00 - Constipation, unspecified constipation type (3) HTN (hypertension): Qualified Code: I10 - Essential hypertension Awilda Guerrero Sep 06, 2016 11:18
[2016-09-06 12:00] VITALS: BP 138/86; PULSE 79; RESP 18; TEMP 98.4; O2SAT 96
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
[2016-09-06 13:31] LABS: ANA SCREEN NEG (NEG)
[2016-09-06 14:49] LABS: RAPID PLASMA REAGIN SCREEN NON-REACTIVE (NON-REACTVE)
[2016-09-06 16:00] VITALS: BP 144/91; PULSE 87; RESP 20; TEMP 97.9; O2SAT 97
[2016-09-06 16:07] LABS: OLIGOCLONAL BANDING CSF 0 bands (()); OLIGOCLONAL BANDING INTERPRET 0 bands (<4); OLIGOCLONAL BANDING SERUM 0 bands (())
[2016-09-06 16:07] LABS: LYME IGG IMMUNOBLOT CSF None Detected bands (None Detected); LYME IGM IMMUNOBLOT CSF None Detected bands (None Detected)
--- NOTE | 2016-09-06 17:19 | HHI.PR ---
Subjective Remarks better Objective Vital Signs Date Time Temp Pulse Resp B/P Pulse Ox O2 Delivery O2 Flow Rate FiO2 09/06/16 12:00 98.4 79 18 138/86 96 09/06/16 08:00 97.5 61 20 133/81 95 09/06/16 04:20 97.2 60 17 140/85 96 09/06/16 00:20 98.4 58 17 113/72 96 09/05/16 20:15 96.4 70 17 127/78 96 09/05/16 19:55 58 I/O 09/05/16 09/05/16 09/05/16 09/06/16 09/06/16 09/06/16 07:00 15:00 23:00 07:00 15:00 23:00 Intake Total 930 ml 960 ml 240 ml 240 ml Output Total 1675 ml 600 ml Balance 930 ml -715 ml 240 ml -360 ml Intake Oral 240 ml 960 ml 240 ml 240 ml IV Total 690 ml Output Urine Total 1675 ml 600 ml # Voids 0 3 0 # Bowel Movements 0 2 0 0 Result Diagram: 09/05/16 0642 09/05/16 0642 Objective Remarks now nl gait stands on toes walks well bilat ue nl and auto parker and finger ext all nl now nad Assessment and Plan Assessment and Plan imp mri brain c t and ls spine neg labs neg emg nl he tells me he was on the toilet and shifted his low back and his hands started working suddenly all normal again he is back to nl neurowise now and ok by me to dc he wants to take his earl up to [place] or [facility] and i told him that was a good idea. Vamsi Olson MD Sep 06, 2016 17:19
--- NOTE | 2016-09-06 17:29 | HHI.DCPOC ---
Discharge Care Plan Diagnosis: (1) Ascending paralysis (2) Fall from ladder (3) Constipation (4) HTN (hypertension) Your Health Problems Are: Anxiety Difficulty with ADL Goals to Promote Your Health * To prevent worsening of your condition and complications * To maintain your health at the optimal level Directions to Meet Your Goals Take your medications as prescribed Follow your dietary instruction Follow activity as directed Keep your appointments as scheduled Take your immunizations and boosters as scheduled If your symptoms worsen call your PCP, if no PCP go to Urgent Care Center or Emergency Room Smoking is Dangerous to Your Health. Avoid second hand smoke Call the 24-hour hour crisis hotline for domestic abuse at Awilda GuerreroP Sep 06, 2016 17:29
[2016-09-07 01:18] LABS: ENTEROVIRUS PCR RESULT Negative (Negative); ENTEROVIRUS PCR SPEC SOURCE CSF (())
[2016-09-07 17:52] LABS: B. BURGDORFERI DNA PCR CSF NOT DETECTED (())
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
[2016-09-07 19:53] LABS: VDRL CSF NON-REACTIVE (())
[2016-09-07 23:57] LABS: CSF CRYPTOCOCCUS AG CONF ND (NOT DETECTD)
[2016-09-08 03:49] LABS: CSF ANGIOTENSIN CONV ENZYME LESS THAN 5 U/L (< OR = 15)
[2016-09-10 22:07] LABS: ALBUMIN SPE 3.78 GM/DL (3.50-5.00); ALPHA 1 GLOBULIN 0.16 GM/DL (0.11-0.29); ALPHA 2 GLOBULIN 0.85 GM/DL (0.22-1.00); BETA GLOBULINS (SPE) 0.64 GM/DL (0.53-1.03)
[2016-09-11 16:15] LABS: VITAMIN B6 15.9 ng/mL (2.1-21.7)
== END 2016-09-06 17:56 | disposition home or self-care (01) | DRG 93 ==
LOC: NEPE 10:50 → NEDA 17:15 → N06B 20:20
PROVIDERS: ADMIT Specialist; ATTEND Specialist
PROC: 009U3ZX Drainage of Spinal Canal, Percutaneous Approach, Diagnostic (ICD-10-PCS; principal; 2016-09-04)
DX: R29.818 Other symptoms and signs involving the nervous system (principal); M50.20 Other cervical disc displacement, unspecified cervical region; I10 Essential (primary) hypertension; M51.26 Other intervertebral disc displacement, lumbar region; K59.00 Constipation, unspecified; E87.6 Hypokalemia; R51 Headache
CPT/HCPCS: 62270; 70551; 72141; 72148; 72156; 72157; 77003; 80048; 80053; 81001; 82164; 82550; 82607; 82746; 82945; 83735; 83873; 83916; 83921; 84157; 84165; 84207; 84425; 84439; 84443; 84450; 84460; 85025; 85610; 85652; 85730; 86038; 86140; 86403; 86430; 86592; 86618; 87070; 87205; 87498; 87529; 87801; 89051; A9579; J7030